=== PATIENT | female | born 1970 | race Caucasian/White ===

== ENCOUNTER 2022-09-17 16:22 | Emergency (ER) | payer BC ==
[~2022-09-17] VITALS: Ht 172.7 cm; Wt 74.8 kg
[2022-09-17 16:25] VITALS: BP 103/77
[2022-09-17] MEDS ORDERED: CELE200 PO (18:20)
[2022-09-17] MEDS ORDERED: PRED10TA23 PO (18:20)
== END 2022-09-17 18:40 | disposition home or self-care (01) ==
LOC: EDH 16:22
DX: S84.802A Injury of other nerves at lower leg level, left leg, initial encounter (principal); M19.90 Unspecified osteoarthritis, unspecified site; Z90.49 Acquired absence of other specified parts of digestive tract; Z90.89 Acquired absence of other organs; Z98.890 Other specified postprocedural states; X58.XXXA Exposure to other specified factors, initial encounter; Y93.89 Activity, other specified; Y92.89 Other specified places as the place of occurrence of the external cause; Y99.8 Other external cause status
CPT/HCPCS: 72131

== ENCOUNTER → 2024-07-05 | Emergency (ER) | payer BC ==
[~2024-07-05] VITALS: Ht 172.7 cm; Wt 68.0 kg
[~2024-07-05] MED LIST: CELE200 PO; GABA-529 PO; GABApentin 100 MG CAPSULE PO STA; PRED10TA23 PO
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
--- NOTE | 2024-07-05 13:02 | EKG ---
[facility] Test Date: 2024-07-05 Test Time: 12:59:24 Pat Name: ANN WOLFF Department: [facility] Room: Gender: F River Tester: 1378 : 1970 Requested By: KIAH ORTA Order Number: [id number] Reading MD: Remy Sun Measurements Intervals [place] Rate: 67 P: 72 VA: 148 QRS: 58 QRSD: 89 T: 255 QT: 355 QTc: 375 Interpretive Statements Sinus rhythm Probable left atrial enlargement No previous ECG available for comparison Electronically Signed On 07-06-2024 06:56:53 ENROLLMENT COORDINATOR by Remy Sun Please click the below link to view image of tracing.
--- NOTE | 2024-07-05 13:19 | HMCIMG ---
RIBS UNI LT W PA CHEST 3+VWS REASON: fall TECHNIQUE: 5 views were obtained. FINDINGS: PA chest x-ray shows clear lungs. Heart size is normal. There is no vascular congestion or pleural effusion. Left rib series shows normal findings. There are no fractures. There are no focal lytic lesions. IMPRESSION: 1. Negative PA chest x-ray and left rib series.
[2024-07-05 14:12] VITALS: BP 111/73; PULSE 74; RESP 16; TEMP 98; O2SAT 99
== END ==
LOC: EDH 12:09
DX: R07.89 Other chest pain (principal); Z79.52 Long term (current) use of systemic steroids; Z90.49 Acquired absence of other specified parts of digestive tract; Z90.89 Acquired absence of other organs; Z98.51 Tubal ligation status; V19.9XXA Pedal cyclist (driver) (passenger) injured in unspecified traffic accident, initial encounter; Y93.89 Activity, other specified; Y92.89 Other specified places as the place of occurrence of the external cause; Y99.8 Other external cause status
CPT/HCPCS: 71101; 93005; 99284